=== PATIENT | female | born 1980 | race Caucasian/White ===

== ENCOUNTER 2018-01-15 03:20 | Emergency (ER) | payer OTHER ==
--- NOTE | 2018-01-15 03:46 | EDM.PDOCBH ---
ED HPI GENERAL MEDICAL PROBLEM - General Chief Complaint: Behavioral/Psych Stated Complaint: Anxiety Time Seen by Provider: 01/15/18 03:38 Source of Information: Reports: Patient, Police, RN, RN Notes Reviewed History Limitations: Reports: No Limitations - History of Present Illness INITIAL COMMENTS - FREE TEXT/NARRATIVE: Patient is brought to the ED at [facility] via [facility] from her work with significant anxiety. 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 Patient states she was exposed to a suicide attempt at work earlier this evening. Patient states she is having significant anxiety from what she experienced. Patient does not have any previous mental health issues. Onset: Today, Sudden ED ROS GENERAL - Review of Systems Review Of Systems: See Below Constitutional: Denies: Fever, Chills Respiratory: Denies: Shortness of Breath, Cough Cardiovascular: Denies: Chest Pain, Palpitations Skin: Reports: No Symptoms Neurological: Reports: No Symptoms Psychiatric: Reports: Agitation ED EXAM, BEHAVIORAL HEALTH - Physical Exam Exam: See Below Exam Limited By: No Limitations General Appearance: Alert, Anxious Respiratory/Chest: No Respiratory Distress, Lungs Clear, Normal Breath Sounds Cardiovascular: Normal Peripheral Pulses, Regular Rate, Rhythm Neurological: Alert, Normal Cognition, Oriented x 3 Psychiatric: Alert, Normal Cognition, Agitated Skin Exam: Warm, Dry, Intact, Normal color COURSE, BEHAVIORAL HEALTH COMP - Course Orders, Labs, Meds: Medications Discontinued Medications Generic Name Dose Route Start Last Admin Trade Name Riosq PRN Reason Stop Dose Admin Lorazepam 2 mg 01/15/18 03:46 Ativan IM 01/15/18 03:47 STAT ONE Departure - Departure Time of Disposition: 03:54 Disposition: Home, Self-Care 01 Condition: Good Clinical Impression: Anxiety - Discharge Information *PRESCRIPTION DRUG MONITORING PROGRAM REVIEWED*: Not Applicable *COPY OF PRESCRIPTION DRUG MONITORING REPORT IN PATIENT SHANNON: Not Applicable Instructions: Panic Attack, [id number] Forms: ED Department Discharge Additional Instructions: 1. Stay well hydrated and rest 2. Get some sleep and rest 3. May want to discussed any concerns you have with Dr. Zimmerman 4. Call us with any concerns - Problem List Review Problem List Initiated/Reviewed/Updated: Yes
[2018-01-15] MEDS: LORazepam 2 MG/ML SDV IM ONE (04:00)
== END 2018-01-15 04:15 | disposition home or self-care (01) ==
LOC: VM.ED 03:20
DX: F41.9 Anxiety disorder, unspecified (principal)
CPT/HCPCS: 96372; 99283; J2060

== ENCOUNTER 2021-04-24 11:23 | Emergency (ER) | payer OTHER ==
[2021-04-24] MEDS ORDERED: Ketorolac 30 MG/ML SDV IM ONE (12:24)
== END 2021-04-24 12:44 | disposition home or self-care (01) ==
LOC: VM.ED 11:23
DX: S00.03XA Contusion of scalp, initial encounter (principal); Z72.0 Tobacco use; W22.09XA Striking against other stationary object, initial encounter; Y99.0 Civilian activity done for income or pay
CPT/HCPCS: 70450; 96372; 99283; J1885